=== PATIENT | male | born 1980 | race African-American/Black ===

== ENCOUNTER 2017-03-20 19:07 | Emergency (ER) | payer SELFPAY ==
[~2017-03-20] VITALS: Ht 167.6 cm; Wt 97.5 kg
[2017-03-20] MEDS ORDERED: fentaNYL PF VIAL 100 MCG/2 ML VIAL IV PRN (20:15)
[2017-03-20 20:21] LABS: BASO % 0 % (0-3); EOS % 1 % (0-3); HEMOGLOBIN 17.9 g/dL (13.0-17.5); LYMPH # 1.1 x10^3/uL (1.0-4.8); LYMPH % 7 % (24-48); MEAN CORPUSCULAR HEMOGLOBIN 30 pg (25-35); MEAN CORPUSCULAR HGB CONC 34 g/dL (31-37); MEAN CORPUSCULAR VOLUME 89 fL (79-100); MONO % 4 % (0-9); NEUT % 89 % (31-73); PLATELET COUNT 248 x10^3/uL (140-400); RED BLOOD COUNT 5.98 x10^6/uL (4.30-5.70); RED CELL DISTRIBUTION WIDTH 13.6 % (11.5-14.5); WHITE BLOOD COUNT 15.9 x10^3/uL (4.0-11.0)
[2017-03-20] MEDS: IV NORMAL SALINE 1000ML BAG 1,000 ML IV SCH ×2 (20:21→21:14)
[2017-03-20 20:37] LABS: CALCIUM 10.2 mg/dL (8.5-10.1); CREATININE 1.2 mg/dL (0.7-1.3); GFR 83.4; POTASSIUM 3.7 mmol/L (3.5-5.1)
[2017-03-20 20:43] LABS: ALBUMIN 4.5 g/dL (3.4-5.0); ALBUMIN/GLOBULIN RATIO 1.4 (1.0-1.7); TOTAL BILIRUBIN 1.1 mg/dL (0.2-1.0); TOTAL PROTEIN 7.7 g/dL (6.4-8.2)
[2017-03-20 21:29] LABS: % EOS 1 % (0-5); PLT ESTIMATE ADEQUATE (ADEQUATE)
[2017-03-20 23:16] LABS: BILIRUBIN,URINE NEGATIVE (NEG); GLUCOSE,URINE NEGATIVE (NEG); NITRITE,URINE NEGATIVE (NEG); PH,URINE 6.5; PROTEIN,URINE NEGATIVE (NEG-TRACE)
[2017-03-20 23:21] LABS: BACTERIA,URINE 0 /HPF (0-FEW); RBC,URINE 0 /HPF (0-2)
--- NOTE | 2017-03-20 23:25 | RAD ---
CT Abdomen and Pelvis With Intravenous Contrast: History: Abdominal pain, leukocytosis, nausea, vomiting, diarrhea. Comparison: None. Technique: After administration of intravenous contrast administration, 75 mL Omnipaque-300, CT of the abdomen and pelvis was performed. Exposure: One or more of the following individualized dose reduction techniques were utilized for this examination: 1. Automated exposure control 2. Adjustment of the mA and/or kV according to patient size 3. Use of iterative reconstruction technique Findings: Evaluation of enteric structures may be limited by lack of oral contrast. Liver, spleen, pancreas, gallbladder, and bilateral adrenal glands are unremarkable. Bilateral kidneys enhance symmetrically. No bowel obstruction or inflammation is seen. Urinary bladder is unremarkable. No free air free fluid is seen in the abdomen or pelvis. Fluid is seen within the colon, compatible with provided history of diarrhea. Impression: 1. Colon contains fluid, compatible with provided history of diarrhea. 2. No acute inflammatory change or obstruction is identified in the bowel. Electronically signed by: Román Varela MD (03/20/2017 11:22 PM)
[2017-03-20] MEDS ORDERED: IV NORMAL SALINE 1000ML BAG 1,000 ML IV ONE (23:30)
--- NOTE | 2017-03-20 23:35 | PHYS DOC ---
Past Medical History Past Medical History: No Pertinent History Past Surgical History: Other Additional Past Surgical Histo: left ankle Alcohol Use: None Drug Use: None Adult General Chief Complaint Chief Complaint: ABDOMINAL PAIN HPI HPI Patient is a 37 year old male who presents with complaint of abdominal pain, nausea, vomiting, and diarrhea which all started 2 hours prior to arrival. Patient states that his symptoms came on suddenly. Patient states that his pain is throughout his entire abdomen. Patient said multiple loose stools and has had multiple episodes of vomiting since onset. Patient denies any fever. Patient denies any sick contacts. 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 Patient rates his pain currently as 10 out of 10. Patient denies any significant past medical history or abdominal surgeries. Patient has not taken any medications to help with symptoms at this time. Review of Systems Review of Systems Constitutional: Generalized fatigue, denies fever or chills [] Eyes: Denies change in visual acuity, redness, or eye pain [] HENT: Denies nasal congestion or sore throat [] Respiratory: Denies cough or shortness of breath [] Cardiovascular: No additional information not addressed in HPI [] GI: Abdominal pain, nausea, vomiting, diarrhea [] : Denies dysuria or hematuria [] Musculoskeletal: Denies back pain or joint pain [] Integument: Denies rash or skin lesions [] Neurologic: Denies headache, focal weakness or sensory changes [] Current Medications Current Medications Current Medications Medications (Trade) Dose Ordered Sig/Lavelle Start Time Stop Time Status Last Admin Dose Admin Fentanyl Citrate (Fentanyl 2ml Vial) 50 mcg PRN Q15MIN PRN 03/20/17 20:15 03/21/17 20:14 03/20/17 20:21 50 MCG Sodium Chloride 1,000 ml @ 1,000 mls/hr 1X ONCE 03/20/17 23:30 03/21/17 00:29 DC Allergies Allergies Allergies Coded Allergies Type Severity Reaction Last Updated Verified No Known Drug Allergies 03/20/17 No Physical Exam Physical Exam Constitutional: Alert, afebrile, appears ill. [] HENT: Normocephalic, atraumatic, bilateral external ears normal, oropharynx dry , no oral exudates, nose normal. [] Eyes: PERRLA, EOMI, conjunctiva normal, no discharge. [] Neck: Normal range of motion, no tenderness, supple, no stridor. [] Cardiovascular: Tachycardia, normal rhythm, no murmur [] Lungs & Thorax: Bilateral breath sounds clear to auscultation [] Abdomen: Bowel sounds normal, soft, diffusely tender in all 4 quadrants, no guarding or rebound tenderness, no masses, no pulsatile masses. [] Skin: Warm, dry, no erythema, no rash. [] Back: No tenderness, no CVA tenderness. [] Extremities: No tenderness, no cyanosis, no clubbing, ROM intact, no edema. [] Neurologic: Alert and oriented X 3, normal motor function, normal sensory function, no focal deficits noted. [] Current Patient Data Vital Signs Vital Signs Date Time Temp Pulse Resp B/P (MAP) Pulse Ox O2 Delivery O2 Flow Rate FiO2 03/20/17 20:21 99 Room Air 03/20/17 20:09 102 25 97/83 (88) 03/20/17 19:52 98.1 98.1 Lab Values Laboratory Tests Test 03/20/17 19:52 03/20/17 23:05 White Blood Count 15.9 x10^3/uL (4.0-11.0) H Red Blood Count 5.98 x10^6/uL (4.30-5.70) H Hemoglobin 17.9 g/dL (13.0-17.5) H Hematocrit 53.0 % (39.0-53.0) Mean Corpuscular Volume 89 fL (79-100) Mean Corpuscular Hemoglobin 30 pg (25-35) Mean Corpuscular Hemoglobin Concent 34 g/dL (31-37) Red Cell Distribution Width 13.6 % (11.5-14.5) Platelet Count 248 x10^3/uL (140-400) Neutrophils (%) (Auto) 89 % (31-73) H Lymphocytes (%) (Auto) 7 % (24-48) L Monocytes (%) (Auto) 4 % (0-9) Eosinophils (%) (Auto) 1 % (0-3) Basophils (%) (Auto) 0 % (0-3) Neutrophils # (Auto) 14.1 x10^3uL (1.8-7.7) H Lymphocytes # (Auto) 1.1 x10^3/uL (1.0-4.8) Monocytes # (Auto) 0.6 x10^3/uL (0.0-1.1) Eosinophils # (Auto) 0.1 x10^3/uL (0.0-0.7) Basophils # (Auto) 0.0 x10^3/uL (0.0-0.2) Segmented Neutrophils % 66 % (35-66) Band Neutrophils % 16 % (0-9) H Lymphocytes % 11 % (24-48) L Monocytes % 6 % (0-10) Eosinophils % 1 % (0-5) Platelet Estimate Adequate (ADEQUATE) Sodium Level 142 mmol/L (136-145) Potassium Level 3.7 mmol/L (3.5-5.1) Chloride Level 105 mmol/L (98-107) Carbon Dioxide Level 24 mmol/L (21-32) Anion Gap 13 (6-14) Blood Urea Nitrogen 14 mg/dL (8-26) Creatinine 1.2 mg/dL (0.7-1.3) Estimated GFR (Cockcroft-Gault) 83.4 BUN/Creatinine Ratio 12 (6-20) Glucose Level 115 mg/dL (70-99) H Calcium Level 10.2 mg/dL (8.5-10.1) H Total Bilirubin 1.1 mg/dL (0.2-1.0) H Aspartate Amino Transferase (AST) 30 U/L (15-37) Alanine Aminotransferase (ALT) 55 U/L (16-63) Alkaline Phosphatase 100 U/L (46-116) Total Protein 7.7 g/dL (6.4-8.2) Albumin 4.5 g/dL (3.4-5.0) Albumin/Globulin Ratio 1.4 (1.0-1.7) Lipase 133 U/L (73-393) Urine Collection Type Unknown Urine Color Yellow Urine Clarity Clear Urine pH 6.5 Urine Specific Mitchell >=1.030 Urine Protein Negative mg/dL (NEG-TRACE) Urine Glucose (UA) Negative mg/dL (NEG) Urine Ketones (Stick) Negative mg/dL (NEG) Urine Blood Negative (NEG) Urine Nitrite Negative (NEG) Urine Bilirubin Negative (NEG) Urine Urobilinogen Dipstick 1.0 mg/dL (0.2 mg/dL) Urine Leukocyte Esterase Negative (NEG) Urine RBC 0 /HPF (0-2) Urine WBC 1-4 /HPF (0-4) Urine Bacteria 0 /HPF (0-FEW) Urine Mucus Mod /LPF Laboratory Tests 03/20/17 19:52 Laboratory Tests 03/20/17 19:52 EKG EKG Not performed [] Radiology/Procedures Radiology/Procedures [facility] [address] [place] [address] IMAGING REPORT Signed PATIENT: ARIEL TSANG ACCOUNT: [id number] : 1980 LOCATION: ER AGE: 37 SEX: M EXAM STATUS: REG ER ORD. PHYSICIAN: JOSE STEINBERG MD REASON: abdominal pain, leukocytosis PROCEDURE: CT ABD PELV W/ IV CONTRST ONLY CT Abdomen and Pelvis With Intravenous Contrast: History: Abdominal pain, leukocytosis, nausea, vomiting, diarrhea. Comparison: None. Technique: After administration of intravenous contrast administration, 75 mL Omnipaque-300, CT of the abdomen and pelvis was performed. Exposure: One or more of the following individualized dose reduction techniques were utilized for this examination: 1. Automated exposure control 2. Adjustment of the mA and/or kV according to patient size 3. Use of iterative reconstruction technique Findings: Evaluation of enteric structures may be limited by lack of oral contrast. Liver, spleen, pancreas, gallbladder, and bilateral adrenal glands are unremarkable. Bilateral kidneys enhance symmetrically. No bowel obstruction or inflammation is seen. Urinary bladder is unremarkable. No free air free fluid is seen in the abdomen or pelvis. Fluid is seen within the colon, compatible with provided history of diarrhea. Impression: 1. Colon contains fluid, compatible with provided history of diarrhea. 2. No acute inflammatory change or obstruction is identified in the bowel. Electronically signed by: Román Varela MD (03/20/2017 11:22 PM) DICTATED and SIGNED BY: ROMÁN VARELA MD DATE: 03/20/17 [id number] CC: JOSE STEINBERG MD; NO PCP ~ [] Course & Med Decision Making Course & Med Decision Making Pertinent Labs and Imaging studies reviewed. (See chart for details) Patient was given 3 L of IV fluids, Zofran, and fentanyl in the emergency department. On reevaluation, patient states he feels much better at this time. The patient shows evidence of dehydration on his lab work. Patient was noted to have leukocytosis with an elevated bandemia count. This does not appear to be specific for a bacterial infection at this time. Patient's abdominal CT shows fluid-filled intestines with no evidence of acute surgical process at this time. Due to improvement in symptoms and hemodynamic stability, the patient will be discharged per his wishes with recommendation of continued oral hydration at home and follow-up in 12-24 hours with primary doctor for reevaluation. Advised return to emergency department for any worsening symptoms. Patient voiced understanding and in agreement with treatment plan. Dragon Disclaimer Dragon Disclaimer This electronic medical record was generated, in whole or in part, using a voice recognition dictation system. Departure Departure Impression: Primary Impression: Abdominal pain Additional Impressions: Diarrhea Nausea and vomiting Dehydration Disposition: 01 HOME, SELF-CARE Condition: IMPROVED Referrals: NO PCP (PCP) Patient Instructions: Abdominal Pain (Nonspecific), Dehydration, Adult, Diarrhea, Nausea and Vomiting Additional Instructions: Follow-up in one to 2 days with your primary doctor for reevaluation. Return to the emergency department for any worsening symptoms. Scripts Ondansetron (ZOFRAN ODT) 4 Mg Tab.rapdis 1 TAB SL Q8HRS Y for NAUSEA/VOMITING, #15 TAB Prov: JOSE STEINBERG MD 03/20/17 Famotidine (PEPCID) 20 Mg Tablet 20 MG PO BID, #30 TAB Prov: JOSE STEINBERG MD 03/20/17 Problem Qualifiers Primary Impression: Abdominal pain Abdominal location: generalized Qualified Codes: R10.84 - Generalized abdominal pain Additional Impressions: Diarrhea Diarrhea type: presumed infectious Qualified Codes: A09 - Infectious gastroenteritis and colitis, unspecified Nausea and vomiting Vomiting type: unspecified Vomiting Intractability: non-intractable Qualified Codes: R11.2 - Nausea with vomiting, unspecified JOSE STEINBERG MD Mar 20, 2017 23:35
[2017-03-20] MEDS ORDERED: FAMO-63 PO (23:59)
[2017-03-20] MEDS ORDERED: ONDA4TAB10 SL (23:59)
[2017-03-21 00:30] VITALS: BP 107/69
--- NOTE | 2017-03-21 07:14 | RAD ---
Indication: Lower abdominal pain. Time of exam 2127 hours. No free air is identified. The lungs appear to be clear. There are scattered air-fluid levels identified in the mid and right abdomen with mild gaseous distention of small and large bowel loops, nonspecific. No definite bowel wall thickening is seen. There is no pneumatosis. No pathologic calcifications are seen. Impression: Nonspecific bowel gas pattern with mild gaseous distention and scattered air fluid levels. CT may be useful for further evaluation. No free air is identified.
== END 2017-03-21 01:00 | disposition home or self-care (01) ==
LOC: ER 19:12
DX: E86.0 Dehydration (principal); A09 Infectious gastroenteritis and colitis, unspecified; R00.0 Tachycardia, unspecified; D72.825 Bandemia
CPT/HCPCS: 36415; 74022; 74177; 80053; 81001; 83690; 85007; 85027; 96360; 96361; 96374; 99285; J3010; J7030